=== PATIENT | male | born 1960 | race Caucasian/White ===

== ENCOUNTER 2020-01-01 17:24 | Emergency (ER) | payer OTHER ==
--- NOTE | 2020-01-01 17:30 | ED Fall/Injury ---
General Stated Complaint: FALL,INTOXICATED Source: patient, EMS Exam Limitations: no limitations History of Present Illness Date Seen by Provider: Jan 01, 2020 Time Seen by Provider: 17:30 Initial Comments 59-year-old male brought in by EMS. EMS reports the patient was at a park on a [place] a [place] where he fell face first. Report is that he lost consciousness. He has blood coming out his right ear. He has swelling to have his right ear. He has decreased consciousness. He is known to have been drinking but we are unsure how much. He provides limited history of present illness. He complains of pain In all over. Patient was C-collared in the field. Patient has an abrasion and swelling above the right eye. No other history of present illness available Allergies and Home Medications Allergies Coded Allergies: No Known Allergies (Verified Allergy, Unknown, 12/19/07) Patient Home Medication List Home Medication List Reviewed: Yes Review of Systems Review of Systems Constitutional: no symptoms reported Eyes: See HPI Ears, Nose, Mouth, Throat: see HPI Respiratory: no symptoms reported Cardiovascular: no symptoms reported Gastrointestinal: no symptoms reported Genitourinary: no symptoms reported Musculoskeletal: see HPI Skin: no symptoms reported Psychiatric/Neurological: No Symptoms Reported Past Zbxlree-Avnawt-Mvkmoa Hx Past Med/Social Hx: Reviewed Nursing Past Med/Soc Hx Physical Exam Vital Signs Vital Signs - First Documented 01/01/20 01/01/20 17:39 19:31 Temp 36.8 Pulse 83 Resp 18 B/P (MAP) 147/91 (109) Pulse Ox 94 O2 Delivery Room Air Capillary Refill : Height, Weight, BMI Height: '" Weight: lbs. oz. kg; BMI Method: General Appearance: mild distress HEENT: PERRL/EOMI, other (right ear canal is full of blood that seems be, in from the canal, there is swelling to the posterior aspect of the right ear, swelling and abrasion over the right eye) Neck: non-tender, supple, other (c collar inplace but removed by patient, unwilling to replace ) Cardiovascular: normal peripheral pulses, regular rate, rhythm Respiratory: lungs clear, normal breath sounds Gastrointestinal: non tender, soft Back: normal inspection, no vertebral tenderness, other (pt complains of back pain but also states is fine. ) Extremities: normal range of motion, normal inspection Neurologic/Psychiatric: no motor/sensory deficits, other (obviously intoxicated. ) Skin: other (abrasion right forehead ) Progress/Results/Core Measures Results/Orders Lab Results Laboratory Tests Test 01/01/20 17:35 Range/Units White Blood Count 9.2 4.3-11.0 10^3/uL Red Blood Count 2.83 L 4.35-5.85 10^6/uL Hemoglobin 9.2 L 13.3-17.7 G/DL Hematocrit 29 L 40-54 % Mean Corpuscular Volume 103 H 80-99 FL Mean Corpuscular Hemoglobin 33 25-34 PG Mean Corpuscular Hemoglobin Concent 32 32-36 G/DL Red Cell Distribution Width 12.8 10.0-14.5 % Platelet Count 140 130-400 10^3/uL Mean Platelet Volume 11.6 H 7.4-10.4 FL Immature Granulocyte % (Auto) 1 % Neutrophils (%) (Auto) 65 42-75 % Lymphocytes (%) (Auto) 24 12-44 % Monocytes (%) (Auto) 9 0-12 % Eosinophils (%) (Auto) 1 0-10 % Basophils (%) (Auto) 0 0-10 % Neutrophils # (Auto) 6.0 1.8-7.8 X 10^3 Lymphocytes # (Auto) 2.2 1.0-4.0 X 10^3 Monocytes # (Auto) 0.8 0.0-1.0 X 10^3 Eosinophils # (Auto) 0.1 0.0-0.3 10^3/uL Basophils # (Auto) 0.0 0.0-0.1 10^3/uL Immature Granulocyte # (Auto) 0.1 0.0-0.1 10^3/uL Prothrombin Time 13.3 12.2-14.7 SEC INR Comment 1.0 0.8-1.4 Activated Partial Thromboplast Time 27 24-35 SEC Sodium Level 140 135-145 MMOL/L Potassium Level 3.8 3.6-5.0 MMOL/L Chloride Level 105 98-107 MMOL/L Carbon Dioxide Level 18 L 21-32 MMOL/L Anion Gap 17 H 5-14 MMOL/L Blood Urea Nitrogen 17 7-18 MG/DL Creatinine 1.00 0.60-1.30 MG/DL Estimat Glomerular Filtration Rate > 60 BUN/Creatinine Ratio 17 Glucose Level 123 H 70-105 MG/DL Calcium Level 8.8 8.5-10.1 MG/DL Corrected Calcium 8.6 8.5-10.1 MG/DL Total Bilirubin 0.2 0.1-1.0 MG/DL Aspartate Amino Transf (AST/SGOT) 28 5-34 U/L Alanine Aminotransferase (ALT/SGPT) 27 0-55 U/L Alkaline Phosphatase 64 40-136 U/L Total Protein 7.0 6.4-8.2 GM/DL Albumin 4.3 3.2-4.5 GM/DL Serum Alcohol 334 *H <10 MG/DL My Orders Orders - SUZANNELETTY L DO Ct Head/Face/Cervical Wo (01/01/20 17:29) Lumbar Spine 2 Or 3 View (01/01/20 17:29) Thoracic Spine 2 View Only (01/01/20:29) Alcohol (01/01/20:29) Cbc With Automated Diff (01/01/20 17:29) Comprehensive Metabolic Panel (01/01/20:29) Drug Screen Stat (Urine) (01/01/20 17:29) Protime With Inr (01/01/20 17:29) Partial Thromboplastin Time (01/01/20 17:29) Ua Culture If Indicated (01/01/20 17:29) Dipht,Pertuss(Acell),Tet Adult (Boostrix (01/01/20 18:15) Medications Given in ED Current Medications Medications Dose Ordered Sig/Kaitlin Route Start Time Stop Time Status Last Admin Dose Admin Diphtheria/ Tetanus/Acell Pertussis 0.5 ml ONCE ONCE IM 01/01/20 18:15 01/01/20 18:16 DC 01/01/20 18:27 0.5 ML Vital Signs/I&O 01/01/20 01/01/20 17:39 19:31 Temp 36.8 Pulse 83 92 Resp 18 18 B/P (MAP) 147/91 (109) 138/81 Pulse Ox 94 95 O2 Delivery Room Air Progress Progress Note : Time: 19:04 Progress Note Called and discussed with on-call neurologist at [facility]. They felt that patient would be better served going to a higher level of care. I then called and discussed with [facility]. Patient was accepted by trauma team Dr. Lemus. Patient to be transferred via air. Patient states critical but stable, no airway compromise at this time, focuses exam at time of transfer showed no acute neurologic deficits. Diagnostic Imaging Diagonstic Imaging: CT Comments [facility], [place] NAME: JOEY BLUE [facility] REC#: [id number] PT STATUS: REG ER : 1960 PHYSICIAN: LETTY PALACIOS DO ADMIT DATE: 01/01/20/ER FS Draft Date of Exam:01/01/20 CT HEAD/FACE/CERVICAL WO PROCEDURE: CT head, face, and cervical spine without contrast. TECHNIQUE: Multiple contiguous axial images were obtained through the head, neck, and facial bones without the use of intravenous contrast. Sagittal and coronal reformations through the cervical spine and facial bones were also performed. Auto Exposure Controls were utilized during the CT exam to meet ALARA standards for radiation dose reduction. INDICATION: Trauma, fall. COMPARISON: None available. FINDINGS: Head: Hyperdense subarachnoid hemorrhage is present in the region of the suprasellar cisterns and tracking into the bilateral sylvian fissures as well as the interhemispheric fissure. The greatest degree of subarachnoid hemorrhage is present in the bilateral orbital frontal region. There is additional subdural hemorrhage on the right parietal region measuring up to 7 mm in thickness. No intraparenchymal hemorrhage. No intraventricular extension of hemorrhage. No hydrocephalus or midline shift. Acute fracture in the right occipital and temporal bones. The temporal bone fracture extends into the mastoid air cells in an oblique fashion. There is no fracture line extending through the inner ear structures. However, there is fluid/hemorrhage within the right middle ear cavity and external ear cavity. No discrete fracture of the middle ear ossicles. Paranasal sinuses and mastoid air cells are clear. Face: No fracture of the nasal bones or osseous nasal septum. The bilateral zygomatic arches are intact, although there may be an old depressed fracture in the left zygomatic arch. Maxillary sinus francisco are intact. No fracture in the orbits. Globes are symmetric without lens dislocation or rupture. Pterygoid plates are intact. No fracture in the mandible. Cervical spine: No acute fracture or traumatic malalignment in the cervical spine. Prior ACDF at C4-C5 with solid osseous fusion across the intervertebral space. No cervical lymphadenopathy. Lung apices are clear. IMPRESSION: 1. Posttraumatic acute subarachnoid hemorrhage involves the basilar cisterns, bilateral sylvian fissures and interhemispheric fissure. The majority of the hemorrhage is located in the orbitofrontal region. 2. Small volume of posttraumatic subdural hematoma is also present on the right. No midline shift. 3. Acute fracture of the right temporal bone does extend into the middle ear cavity with blood surrounding the middle ear ossicles. However, there does not appear to be praveena disruption of the middle ear ossicles. 3. No fracture in the cervical spine. 4. No acute fracture in the mid face or mandible. Report was called to Dr. Palacios by Deo Lowry at 6:39 PM on 01/01/2020. Thoracic/Lumbar xrays reviewed, no acute fractures noted Reviewed: Reviewed by Me, Reviewed/Discussed Departure Impression Primary Impression: Traumatic subarachnoid hemorrhage with loss of consciousness Qualified Codes: S06.6X9A - Traumatic subarachnoid hemorrhage with loss of consciousness of unspecified duration, initial encounter Additional Impressions: Traumatic subdural hematoma Qualified Codes: S06.5X9A - Traumatic subdural hemorrhage with loss of consciousness of unspecified duration, initial encounter Fall (on)(from) incline, initial encounter Alcohol intoxication Qualified Codes: F10.920 - Alcohol use, unspecified with intoxication, uncomplicated Disposition: 02 XFER SHT-TRM HOSP Condition: Critical Transfer Transfer Reason: Exceeds level of care Time Spoke to Accepting Phy: 19:00 Transfer Progress Notes Patient to be transferred to [facility], patient accepted by the trauma team Dr Lemus, patient transferred in critical but stable condition Transfer Facility: [facility] Method of Transfer: Air Departure-Patient Inst. Referrals: [facility] DANIELLE DO (PCP) Primary Care Physician LETTY PALACIOS DO Jan 01, 2020 17:30
[2020-01-01 17:49] LABS: HEMATOCRIT 29 % (40-54); HEMOGLOBIN 9.2 G/DL (13.3-17.7); MEAN CORPUSCULAR HEMOGLOBIN 33 PG (25-34); MEAN CORPUSCULAR HGB CONC 32 G/DL (32-36); MEAN CORPUSCULAR VOLUME 103 FL (80-99); WHITE BLOOD COUNT 9.2 10^3/uL (4.3-11.0)
[2020-01-01 17:50] LABS: BASOPHILS % (AUTO) 0 % (0-10); EOSINOPHILS # (AUTO) 0.1 10^3/uL (0.0-0.3); EOSINOPHILS % (AUTO) 1 % (0-10); LYMPHOCYTES # (AUTO) 2.2 X 10^3 (1.0-4.0); LYMPHOCYTES % (AUTO) 24 % (12-44); MEAN PLATELET VOLUME 11.6 FL (7.4-10.4); MONOCYTES # (AUTO) 0.8 X 10^3 (0.0-1.0); MONOCYTES % (AUTO) 9 % (0-12); NEUTROPHILS % (AUTO) 65 % (42-75); PLATELET COUNT 140 10^3/uL (130-400)
[2020-01-01 18:04] LABS: PROTHROMBIN TIME PATIENT 13.3 SEC (12.2-14.7)
[2020-01-01 18:12] LABS: SODIUM 140 MMOL/L (135-145)
[2020-01-01 18:13] LABS: ALANINE AMINOTRANSFERASE 27 U/L (0-55); ALBUMIN 4.3 GM/DL (3.2-4.5); ALKALINE PHOSPHATASE 64 U/L (40-136); BILIRUBIN,TOTAL 0.2 MG/DL (0.1-1.0); BUN/CREATININE RATIO 17; CALCIUM 8.8 MG/DL (8.5-10.1); CARBON DIOXIDE 18 MMOL/L (21-32); CHLORIDE 105 MMOL/L (98-107); GFR ESTIMATED > 60; GLUCOSE 123 MG/DL (70-105); POTASSIUM 3.8 MMOL/L (3.6-5.0)
[2020-01-01] MEDS ORDERED: TETANUS,DIPTH,PERTUSS P/F (BOOSTRIX) 0.5 ML VIAL IM ONE (18:15)
--- NOTE | 2020-01-01 18:32 | NUR ---
Called ike to launch helicopter at this time. Approximate eta is 45 min.
--- NOTE | 2020-01-01 18:43 | Diagnostic Imaging Report ---
INDICATION: Trauma, fall. TECHNIQUE: 2 views of thoracic spine. FINDINGS: No traumatic subluxation in the thoracic spine. No compression deformity within the thoracic vertebrae. Intervertebral disc space heights are preserved. Pedicles are normal in appearance. IMPRESSION: No fracture or traumatic malalignment in the thoracic spine by radiography. Dictated by: Dictated on workstation # [id number]
--- NOTE | 2020-01-01 18:44 | Diagnostic Imaging Report ---
INDICATION: Trauma, fall. COMPARISON: Thoracic spine radiographs performed concurrently. TECHNIQUE: 3 views of lumbar spine were obtained. FINDINGS: No diastases of the SI joints. No traumatic subluxation of the lumbar spine. Vertebral bodies are normal in stature without compression deformity. No appreciable fracture of the transverse processes. The pedicles are normal in appearance. Scattered vascular calcifications are present in the aorta. Multilevel mild degenerative disc disease. IMPRESSION: No features of acute fracture or traumatic malalignment in the lumbar spine by radiography. Dictated by: Dictated on workstation # [id number]
--- NOTE | 2020-01-01 18:45 | Diagnostic Imaging Report ---
PROCEDURE: CT head, face, and cervical spine without contrast. TECHNIQUE: Multiple contiguous axial images were obtained through the head, neck, and facial bones without the use of intravenous contrast. Sagittal and coronal reformations through the cervical spine and facial bones were also performed. Auto Exposure Controls were utilized during the CT exam to meet ALARA standards for radiation dose reduction. INDICATION: Trauma, fall. COMPARISON: None available. FINDINGS: Head: Hyperdense subarachnoid hemorrhage is present in the region of the suprasellar cisterns and tracking into the bilateral sylvian fissures as well as the interhemispheric fissure. The greatest degree of subarachnoid hemorrhage is present in the bilateral orbital frontal region. There is additional subdural hemorrhage on the right parietal region measuring up to 7 mm in thickness. No intraparenchymal hemorrhage. No intraventricular extension of hemorrhage. No hydrocephalus or midline shift. Acute fracture in the right occipital and temporal bones. The temporal bone fracture extends into the mastoid air cells in an oblique fashion. There is no fracture line extending through the inner ear structures. However, there is fluid/hemorrhage within the right middle ear cavity and external ear cavity. No discrete fracture of the middle ear ossicles. Paranasal sinuses and mastoid air cells are clear. Face: No fracture of the nasal bones or osseous nasal septum. The bilateral zygomatic arches are intact, although there may be an old depressed fracture in the left zygomatic arch. Maxillary sinus francisco are intact. No fracture in the orbits. Globes are symmetric without lens dislocation or rupture. Pterygoid plates are intact. No fracture in the mandible. Cervical spine: No acute fracture or traumatic malalignment in the cervical spine. Prior ACDF at C4-C5 with solid osseous fusion across the intervertebral space. No cervical lymphadenopathy. Lung apices are clear. IMPRESSION: 1. Posttraumatic acute subarachnoid hemorrhage involves the basilar cisterns, bilateral sylvian fissures and interhemispheric fissure. The majority of the hemorrhage is located in the orbitofrontal region. 2. Small volume of posttraumatic subdural hematoma is also present on the right. No midline shift. 3. Acute fracture of the right temporal bone does extend into the middle ear cavity with blood surrounding the middle ear ossicles. However, there does not appear to be praveena disruption of the middle ear ossicles. 3. No fracture in the cervical spine. 4. No acute fracture in the mid face or mandible. Report was called to Dr. Arboleda by Deo Lowry at 6:39 PM on 01/01/2020. Dictated by: Dictated on workstation # [id number]
--- NOTE | 2020-01-01 19:15 | NUR ---
FLIGHT CREW ARRIVED.
[2020-01-01 19:31] VITALS: BP 138/81
--- NOTE | 2020-01-01 19:31 | NUR ---
FLIGHT CREW DEPART WITH
== END 2020-01-01 19:31 | disposition short-term general hospital (02) ==
LOC: EDUNIT# 17:24 → ER FS 17:25
DX: S06.5X9A Traumatic subdural hemorrhage with loss of consciousness of unspecified duration, initial encounter (principal); S06.6X9A Traumatic subarachnoid hemorrhage with loss of consciousness of unspecified duration, initial encounter; F10.129 Alcohol abuse with intoxication, unspecified; Z23 Encounter for immunization; W10.2XXA Fall (on)(from) incline, initial encounter
CPT/HCPCS: 36415; 70450; 70486; 72070; 72100; 72125; 80053; 85025; 85610; 85730; 99291; G0480; 80320; 90715

== ENCOUNTER → 2020-07-01 | Outpatient (CLI) | payer MEDICAID ==
--- NOTE | 2020-07-01 12:17 | Diagnostic Imaging Report ---
PROCEDURE: CT cervical spine without contrast. TECHNIQUE: Multiple contiguous axial images were obtained through the cervical spine without the use of intravenous contrast. Sagittal and coronal reformations were then performed. Auto Exposure Controls were utilized during the CT exam to meet ALARA standards for radiation dose reduction. INDICATION: Cervical spine fusion 20 years ago. Recent fall. Right arm numbness and pain. Neck popping. Off balance. COMPARISON: CT cervical spine without contrast 01/01/2020. FINDINGS: Stable grade 1 retrolisthesis of C3 on C4. Mature anterior fusion with interbody bone grafting at C4-C5. Hardware components are intact. No evidence of loosening. No fractures. Moderate to advanced generative endplate changes at C3-C4 and C5-C6. Stable mild anterior wedging of C3 and C6. Vertebral body heights are otherwise preserved. Disc osteophyte complex results in at least mild spinal canal stenosis at C3-C4. No high-grade spinal canal stenosis is evident on soft tissue windows. Disc space height loss and uncovertebral joint hypertrophy result in mild to moderate bilateral neural foraminal narrowing at C3-C4 and C5-C6. No other substantial neural foraminal narrowing. Visualized lung apices are clear. Moderate atherosclerotic calcifications of the carotid bifurcations. IMPRESSION: 1. Mature anterior fusion with interbody bone grafting at C4-C5. No evidence of hardware failure. 2. Spondylotic changes are greatest at C3-C4 and C5-C6 where there is mild to moderate osseous neural foraminal narrowing. No high-grade spinal canal stenosis is evident on soft tissue windows. There is at least mild spinal canal stenosis at C3-C4. Dictated by: Dictated on workstation # [id number]
== END ==
LOC: RAD 11:25
PROVIDERS: ATTEND Nurse Practitioner Family
DX: M47.812 Spondylosis without myelopathy or radiculopathy, cervical region (principal); M48.02 Spinal stenosis, cervical region; M43.22 Fusion of spine, cervical region
CPT/HCPCS: 72125

== ENCOUNTER → 2020-09-25 | Outpatient (CLI) | payer MEDICAID ==
--- NOTE | 2020-09-25 10:15 | Diagnostic Imaging Report ---
INDICATION: Right wrist pain. Comparison with 11/24/2007. 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 There is [id number] appearance of the scaphoid lunate and the radial joint. Diffuse subcortical cystic changes with sclerotic change. There is some subluxation of the lunate with disruption of the scapholunate ligament. There is moderate severe arthritic change along the STT joint as well. The 1st CMC joint shows mild arthritic change. Ulnar styloid is intact. No acute fractures. There is rather dense calcification of the radial artery. 1. 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 Dictated by: Dictated on workstation # [id number]
== END ==
LOC: RAD FS 09:53
PROVIDERS: ATTEND Nurse Practitioner Family
DX: M19.031 Primary osteoarthritis, right wrist (principal)
CPT/HCPCS: 73110